=== PATIENT | male | born 1965 | race Caucasian/White ===

== ENCOUNTER 2016-08-18 11:24 | Inpatient (IN) | payer OTHER ==
[~2016-08-18] VITALS: Ht 154.9 cm; Wt 72.6 kg
[~2016-08-18 11:24] MED LIST: ATARAX,VISTARIL50 MG PO; CARBIDOPA/LEVOD1 TA1 PO; GABAPENTIN1 CRY PO; Motrin,Rufen800 MG PO; NEURONTIN600 MG PO; Nicotrol 10MG I1 BOX INH; TRAZODONE50 MG PO
[2016-08-18 12:00] VITALS: BP 154/96
[2016-08-18 13:41] LABS: BILIRUBIN NEGATIVE (NEGATIVE); BLOOD NEGATIVE (NEGATIVE); CLARITY CLEAR (CLEAR); COLOR YELLOW (YELLOW); GLUCOSE NEGATIVE (NEGATIVE); KETONE NEGATIVE (NEGATIVE); LEUKO ESTERASE NEGATIVE (NEGATIVE); NITRITE NEGATIVE (NEGATIVE); PH 5.5 (5.0-9.0); PROTEIN NEGATIVE (NEGATIVE); UROBILINOGEN 0.2 E.U./dl (0.2-1.0)
[2016-08-18 13:50] LABS: RBC 0-2 rbc/hpf (0-2); URINE AMPHETAMINES < 1000 (1000ng/ml); URINE BARBITURATES < 200 (200ng/ml); URINE COCAINE > 300 (300ng/ml); URINE REFLEX COMMENT NO (NO); WBC 0-2 wbc/hpf (0-5)
[2016-08-18 14:31] LABS: ALKALINE PHOSPHATASE 105 U/L (45-117); BILIRUBIN, TOTAL 0.3 mg/dl (0.2-1.0); BUN 8 mg/dl (7-24); CARBON DIOXIDE 24 mmol/L (21-32); CHLORIDE 111 mmol/L (98-107); EST GLOM FILT AFRICAN AMERICAN > 60 ml/min; GLUCOSE 115 mg/dL (65-99); SGOT/AST 14 IU/L (3-35); SGPT/ALT 9 U/L (12-78); SODIUM 143 mmol/L (136-145); TOTAL PROTEIN 6.2 gm/dL (6.4-8.2)
[2016-08-18 15:26] LABS: PROTHROMBIN TIME 10.8 SECONDS (9.0-12.4)
[2016-08-18 16:00] VITALS: BP 136/71
[2016-08-18 16:13] LABS: BASO % 0.5 % (0.0-1.0); EOS # 0.3 10*3/uL (0.0-0.4); HEMATOCRIT 40.5 % (42.0-52.0); HEMOGLOBIN 13.4 g/dl (14.0-18.0); LYMPH # 2.4 10*3/uL (1.3-4.4); MEAN CELL VOLUME 87.9 fl (80.0-94.0); MEAN CORPUSCULAR HGB 29.1 pg (27.0-31.0); MEAN CORPUSCULAR HGB CONC 33.1 g/dl (33.0-37.0); MEAN PLATELET VOLUME 9.9 fl (9.6-12.3); MONO # 0.4 10*3/uL (0.1-1.0); MONO % 4.7 % (3.0-9.0); NEUT # 5.2 10*3/uL (2.3-7.9); NEUT % 61.7 % (47.0-73.0); PLATELET COUNT AUTOMATED 318 10*3/uL (130-400); RED BLOOD COUNT 4.61 10*6/uL (4.50-5.90); RED CELL DISTRI WIDTH 13.2 % (0-14.5); WHITE BLOOD COUNT 8.4 10*3/uL (4.8-10.8)
[2016-08-18 20:00] VITALS: BP 148/69
[2016-08-19] VITALS: BP 116/66
[2016-08-19 04:00] VITALS: BP 107/58
[2016-08-19 08:00] VITALS: BP 126/72
[2016-08-19 12:00] VITALS: BP 124/70
[2016-08-19 16:00] VITALS: BP 105/54
[2016-08-19 20:00] VITALS: BP 101/53
[2016-08-20] VITALS: BP 125/61
[2016-08-20 08:00] VITALS: BP 123/73
[2016-08-20 12:00] VITALS: BP 120/56; BP 123/73
[2016-08-20 16:00] VITALS: BP 120/70
[2016-08-20 20:00] VITALS: BP 127/77
[2016-08-21] VITALS: BP 125/75
[2016-08-21 08:00] VITALS: BP 126/62
[2016-08-21 16:00] VITALS: BP 115/79
[2016-08-21 20:00] VITALS: BP 118/68
[2016-08-22] VITALS: BP 108/64
[2016-08-22 08:00] VITALS: BP 104/72
[2016-08-22] MEDS ORDERED: ATARAX,VISTARIL50 MG PO (13:01)
== END 2016-08-22 13:09 | disposition home or self-care (01) | DRG 897 ==
LOC: 5E 11:24
PROVIDERS: Hospitalist; Nurse Practitioner Adult Health
DX: F11.23 Opioid dependence with withdrawal (principal); E11.42 Type 2 diabetes mellitus with diabetic polyneuropathy; E44.1 Mild protein-calorie malnutrition; B18.2 Chronic viral hepatitis C; I10 Essential (primary) hypertension; F41.9 Anxiety disorder, unspecified; D64.9 Anemia, unspecified; F14.10 Cocaine abuse, uncomplicated; F17.200 Nicotine dependence, unspecified, uncomplicated; Z82.49 Family history of ischemic heart disease and other diseases of the circulatory system; Z82.3 Family history of stroke; Z79.899 Other long term (current) drug therapy; Z68.30 Body mass index [BMI] 30.0-30.9, adult

== ENCOUNTER 2016-11-01 14:05 | Inpatient (IN) | payer OTHER ==
[~2016-11-01] VITALS: Ht 180.3 cm; Wt 69.0 kg
[2016-11-01 16:25] LABS: BASO % 0.4 % (0.0-1.0); EOS # 0.1 10*3/uL (0.0-0.4); EOS % 0.6 % (1.0-4.0); HEMATOCRIT 42.3 % (42.0-52.0); HEMOGLOBIN 14.1 g/dl (14.0-18.0); LYMPH # 2.5 10*3/uL (1.3-4.4); LYMPH % 29.2 % (27.0-41.0); MEAN CELL VOLUME 87.4 fl (80.0-94.0); MEAN CORPUSCULAR HGB 29.1 pg (27.0-31.0); MEAN CORPUSCULAR HGB CONC 33.3 g/dl (33.0-37.0); MEAN PLATELET VOLUME 9.6 fl (9.6-12.3); MONO # 0.5 10*3/uL (0.1-1.0); MONO % 5.4 % (3.0-9.0); NEUT # 5.5 10*3/uL (2.3-7.9); NEUT % 64.2 % (47.0-73.0); PLATELET COUNT AUTOMATED 334 10*3/uL (130-400); RED BLOOD COUNT 4.84 10*6/uL (4.50-5.90); RED CELL DISTRI WIDTH 12.9 % (0-14.5); WHITE BLOOD COUNT 8.6 10*3/uL (4.8-10.8)
[2016-11-01 16:40] LABS: ALBUMIN 3.7 gm/dl (3.1-4.5); ALKALINE PHOSPHATASE 136 U/L (45-117); BUN 14 mg/dl (7-24); CHLORIDE 105 mmol/L (98-107); POTASSIUM 3.8 mmol/L (3.5-5.1); SGOT/AST 16 IU/L (3-35); SGPT/ALT 11 U/L (12-78); SODIUM 137 mmol/L (136-145); TOTAL PROTEIN 7.7 gm/dL (6.4-8.2)
[2016-11-01 16:50] LABS: ETHYL ALCOHOL < 3.0 mg/dl (<3)
--- NOTE | 2016-11-01 17:05 | NUR ---
51 year old MALE admitted to room # 506-2 for stabilization. 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 Compliant with admission procedure. Patient denies any anxiety, but is unable to sit still, taps toes to floor continuously, looks about room, unable to focus eyes on nurse during interview. See assessment forms for additional information about patient status.
[2016-11-01 17:22] VITALS: BP 119/73
[2016-11-01] MEDS ORDERED: GABAPENTIN800 MG PO (18:06)
--- NOTE | 2016-11-01 19:13 | NUR ---
Patient reports the following symptoms of withdrawal: body aches, leg pain, nausea and cocaine cravings. Patient given scheduled/PRN medication to control withdrawal symptoms. Close observation will be maintained.
[2016-11-01 20:00] VITALS: BP 126/62
--- NOTE | 2016-11-01 21:15 | NUR ---
PATIENT STATES EARLIER MEDICATIONS HELPED SOME, BUT HE IS STILL C/O ANXIETY, RESTLESS LEGS, AND MUSCLE CRAMPS/PAIN. ALSO STATES HE HAS SOME STOMACH CRAMPS WELL. PO BENTYL AND PO TYLENOL ADMINISTERED PER PRN ORDER FOR THE STOMACH CRAMPS AND MUSCLE CRAMPS. PO TRAZODONE ALSO ADMINISTERED PER ORDER TO HELP PATIENT SLEEP. WILL MONITOR EFFECTIVENESS OF MEDICATIONS. CALL LIGHT LEFT IN REACH.
[2016-11-01 21:48] LABS: URINE AMPHETAMINES < 1000 (1000ng/ml); URINE BARBITURATES < 200 (200ng/ml); URINE BENZODIAZEPINES < 200 (200ng/ml); URINE CANNABINOIDS (THC) < 50 (50ng/ml); URINE COCAINE > 300 (300ng/ml); URINE METHADONE < 300 (300ng/ml); URINE OPIATES > 300 (300ng/ml)
[2016-11-01 21:59] LABS: URINE PHENCYCLIDINE < 25 (25ng/ml)
--- NOTE | 2016-11-01 22:03 | NUR ---
EARLIER MEDICATIONS HELPED SOME PER PATIENT. WILL MONITOR.
[2016-11-02] VITALS: BP 101/58
--- NOTE | 2016-11-02 02:45 | NUR ---
PATIENT MEDICATED WITH PO ROBAXIN, VISTARIL, AND TRAZODONE PER PRN ORDER FOR C/O MUSCLE ACHES, ANXIETY, AND RESTLESSNESS. SCHEDULED LIBRIUM DOSE ALSO ADMINISTERED AT THIS TIME. WILL MONITOR EFFECTIVENESS. CALL LIGHT LEFT WITHIN REACH.
[2016-11-02 03:00] VITALS: BP 122/66
--- NOTE | 2016-11-02 03:56 | NUR ---
EARLIER MEDICATIONS APPEAR EFFECTIVE. PATIENT ASLEEP IN BED, RESPIRATIONS EASY, NO S/S OF DISTRESS NOTED. WILL CONTINUE TO MONITOR. CALL LIGHT IN REACH.
[2016-11-02 08:00] VITALS: BP 129/82
--- NOTE | 2016-11-02 09:50 | NUR ---
PATIENT MEDICATED WITH VISTARIL AND ROBAXIN FOR COMPLAINTS OF ANXIETY AND MUSCLE ACHES, ALSO MEDICATED WITH NICODERM PATCH PER ORDER FOR NICOTINE WITHDRAWAL.
--- NOTE | 2016-11-02 11:13 | NUR ---
PER PATIENT, PRN MEDICATION HAS BEEN EFFECTIVE.
[2016-11-02 12:00] VITALS: BP 114/66
[2016-11-02 16:00] VITALS: BP 149/81
--- NOTE | 2016-11-02 16:02 | NUR ---
pt medicated with robaxin & vistaril at this time per prn order for muscle aches & anxiety. will monitor for effectiveness.
--- NOTE | 2016-11-02 17:09 | NUR ---
PER PATIENT, MEDICATION HAS BEEN EFFECTIVE. NO COMPLAINTS VOICED AT THIS TIME.
[2016-11-02 20:00] VITALS: BP 114/57
--- NOTE | 2016-11-02 20:24 | NUR ---
PATIENT AWAKE IN BED, A&OX3. PATIENT STATES HE IS FEELING MUCH BETTER TODAY THAN HE HAD FELT LAST NIGHT. PT STILL C/O SOME ANXIETY, RESTLESS LEGS/LEG ACHES, AND SOME SLEEPLESSNESS. EDUCATED ABOUT PRN MEDICATIONS. PRN MEDS TO BE ADMINISTERED PER ORDER WHEN DUE. WILL MONITOR PATIENT. PT ALSO EDUCATED ABOUT NEEDING URINE SAMPLE. PT VERBALIZES UNDERSTANDING.
--- NOTE | 2016-11-02 21:34 | NUR ---
PT MEDICATED WITH PO ROBAXIN, REQUIP, VISTARIL, AND TRAZODONE FOR C/O MUSCLE ACHES, RESTLESS LEGS, ANXIETY, AND SLEEPLESSNESS. WILL MONITOR EFFECTIVENESS. CALL LIGHT LEFT WITHIN REACH.
[2016-11-02 21:38] LABS: BILIRUBIN NEGATIVE (NEGATIVE); BLOOD NEGATIVE (NEGATIVE); CLARITY SL CLOUDY (CLEAR); COLOR YELLOW (YELLOW); GLUCOSE NEGATIVE (NEGATIVE); KETONE NEGATIVE (NEGATIVE); LEUKO ESTERASE NEGATIVE (NEGATIVE); NITRITE NEGATIVE (NEGATIVE); SPECIFIC GRAVITY 1.025 (1.005-1.030); UROBILINOGEN 0.2 E.U./dl (0.2-1.0)
[2016-11-02 22:03] LABS: BACTERIA TRACE; CALCIUM OXALATE CRYSTALS 1+; RBC 0-2 rbc/hpf (0-2); WBC 0-2 wbc/hpf (0-5)
--- NOTE | 2016-11-02 23:01 | NUR ---
SCHEDULED SUBUTEX ADMINISTERED PER ORDER. PATIENT STATES EARLIER MEDICATIONS WERE EFFECTIVE. WILL CONTINUE TO MONTIOR. CALL LIGHT IN REACH.
[2016-11-03] VITALS: BP 121/75
--- NOTE | 2016-11-03 03:51 | NUR ---
PATIENT ASLEEP IN BED AT THIS TIME. RESPIRATIONS EASY, NO S/S OF DISTRESS NOTED. WILL MONITOR. CALL LIGHT LEFT WITHIN REACH.
--- NOTE | 2016-11-03 05:22 | NUR ---
PO ROBAXIN AND PO VISTARIL ADMINISTERED PER PRN ORDER FOR PT C/O MUSCLE ACHES IN LEGS AND ANXIETY. WILL MONITOR EFFECTIVENESS. CALL LIGHT LEFT IN REACH.
--- NOTE | 2016-11-03 06:21 | NUR ---
PATIENT STATES EARLIER MEDICATIONS WERE EFFECTIVE. WILL CONTINUE TO MONITOR.
[2016-11-03 08:00] VITALS: BP 108/72
--- NOTE | 2016-11-03 08:00 | NUR ---
PATIENT MEDICATED WITH MOTRIN & REQUIP PER PRN ORDER FOR COMPLAINTS OF RESTLESS LEGS & BACK PAIN. WILL MONITOR FOR EFFECTIVENESS.
--- NOTE | 2016-11-03 09:09 | NUR ---
PER PATIENT, PRN MEDICATION HAS BEEN EFFECTIVE.
[2016-11-03 12:00] VITALS: BP 120/73
--- NOTE | 2016-11-03 12:51 | NUR ---
PATIENT REQUESTING VISTARIL FOR COMPLAINTS OF ANXIETY AT THIS TIME. WILL MONITOR FOR EFFECTIVENESS.
--- NOTE | 2016-11-03 14:00 | NUR ---
PER PATIENT, MEDICATION HAS BEEN EFFECTIVE.
--- NOTE | 2016-11-03 14:02 | NUR ---
D/C PLAN: PATIENT WANTS TO GO TO [employer] FOR HIS AFTERCARE PLAN. PATIENT WANTS TO PARTICIPATE IN THEIR [employer] PROGRAM. [employer] SET UP FIRST TWO INITITAL APPOINTMENTS. PATIENT AGREES AND UNDERSTANDS TO PLAN. LAVERN MACKEY B.A [employer]
[2016-11-03 16:00] VITALS: BP 118/63
[2016-11-03 20:00] VITALS: BP 120/69
--- NOTE | 2016-11-03 20:12 | NUR ---
PATIENT MEDICATED WITH PO MOTRIN, VISTARIL, ROBAXIN, AND REQUIP PER PRN ORDERS FOR C/O CHRONIC BACK PAIN, ANXIETY, MUSCLE ACHES IN LEGS, AND RESTLESS LEGS. SCHEDULED SL SUBUTEX ALSO ADMINISTERED AT THIS TIME. WILL MONITOR. CALL LIGHT LEFT WITHIN REACH.
--- NOTE | 2016-11-03 21:03 | NUR ---
PATIENT STATES EARLIER MEDICATIONS WERE EFFECTIVE. PATIENT REQUESTED AND RECEIVED PO TRAZODONE PER PRN ORDER FOR C/O SLEEPLESSNESS THROUGHOUT THE NIGHT. WILL MONITOR EFFECTIVENESS. CALL LIGHT LEFT WITHIN REACH.
--- NOTE | 2016-11-03 22:35 | NUR ---
EARLIER MEDICATIONS APPEAR EFFECTIVE. PATIENT RESTING IN BED WITH EYES CLOSED. RESPIRATIONS EASY, NO S/S OF DISTRESS NOTED. WILL CONTINUE TO MONITOR PATIENT. CALL LIGHT LEFT WITHIN REACH.
[2016-11-04] VITALS: BP 121/88
--- NOTE | 2016-11-04 03:59 | NUR ---
PATIENT SLEEPING IN BED. NO S/S OF DISTRESS NOTED. WILL CONTINUE TO MONITOR.
--- NOTE | 2016-11-04 05:40 | NUR ---
PATIENT MEDICATED WITH PO ROBAXIN AND PO VISTARIL FOR C/O MUSCLE ACHES AND ANXIETY. NEW NICOTINE PATCH ALSO PLACED ON RIGHT UPPER ARM. OLD PATCH REMOVED. WILL MONITOR EFFECTIVENESS OF MEDICATIONS. CALL LIGHT LEFT WITHIN REACH.
[2016-11-04 06:40] LABS: BASO % 0.4 % (0.0-1.0); EOS # 0.2 10*3/uL (0.0-0.4); EOS % 2.2 % (1.0-4.0); HEMATOCRIT 40.9 % (42.0-52.0); HEMOGLOBIN 13.5 g/dl (14.0-18.0); LYMPH # 3.7 10*3/uL (1.3-4.4); LYMPH % 49.6 % (27.0-41.0); MEAN CELL VOLUME 87.2 fl (80.0-94.0); MEAN CORPUSCULAR HGB 28.8 pg (27.0-31.0); MEAN PLATELET VOLUME 9.6 fl (9.6-12.3); MONO # 0.5 10*3/uL (0.1-1.0); MONO % 7.1 % (3.0-9.0); NEUT % 40.6 % (47.0-73.0); PLATELET COUNT AUTOMATED 333 10*3/uL (130-400); RED BLOOD COUNT 4.69 10*6/uL (4.50-5.90); WHITE BLOOD COUNT 7.4 10*3/uL (4.8-10.8)
[2016-11-04 07:06] LABS: CREATININE 0.94 mg/dL (0.70-1.30)
--- NOTE | 2016-11-04 08:30 | NUR ---
Patient displaying withdrawal symptoms, including: irritability, anxiousness, restlessness and agitation. Scheduled/PRN medications provided. Will continue to monitor medication effectiveness.
--- NOTE | 2016-11-04 09:30 | NUR ---
Patient resting. Responding to scheduled medications with fewer complaints of pain and anxiety.
[2016-11-04] MEDS ORDERED: ATARAX,VISTARIL50 MG PO (10:59)
[2016-11-04] MEDS ORDERED: ROPINIROLE HYD0.5 MG PO (10:59)
[2016-11-04] MEDS ORDERED: GABAPENTIN800 MG PO (10:59)
--- NOTE | 2016-11-04 11:50 | NUR ---
Discharge instructions reviewed with patient/family. Patient receptive and verbalizes understanding. Follow-up care arranged. Written instructions given to patient/family. BLAIR GARCIA.
== END 2016-11-04 11:50 | disposition home or self-care (01) | DRG 897 ==
LOC: 5E 14:05
PROVIDERS: Registered Nurse; ADMIT Internal Medicine
DX: F11.23 Opioid dependence with withdrawal (principal); E11.42 Type 2 diabetes mellitus with diabetic polyneuropathy; B19.20 Unspecified viral hepatitis C without hepatic coma; F17.200 Nicotine dependence, unspecified, uncomplicated; F41.9 Anxiety disorder, unspecified; G89.29 Other chronic pain; M54.9 Dorsalgia, unspecified; I10 Essential (primary) hypertension; B18.2 Chronic viral hepatitis C; Z82.3 Family history of stroke; Z82.49 Family history of ischemic heart disease and other diseases of the circulatory system; Z79.899 Other long term (current) drug therapy; Z71.6 Tobacco abuse counseling